=== PATIENT | female | born 1995 | race Two or more races ===

== ENCOUNTER 2020-09-25 18:46 | Emergency (ER) | payer SELFPAY ==
[2020-09-25 19:07] VITALS: BP 132/98; PULSE 82; RESP 20; TEMP 36.3; O2SAT 100
--- NOTE | 2020-09-25 20:17 | ED.URI ---
HPI - URI/Sore Throat General Chief Complaint: Upper Respiratory Infection Stated Complaint: Sore Throat Time Seen by Provider: 09/25/20 19:16 Source: patient Mode of arrival: ambulatory Limitations: no limitations History of Present Illness HPI Narrative: 25-year-old with no major medical problems here with complaints of sore throat for last 2 days complaints of cough occasionally which is nonproductive denies any fever or chills. MD elicited complaint: sore throat, rhinorrhea and nasal congestion Onset (ago): day(s) (2) Consistency: constant Severity: moderate Exacerbating factors: swallowing Relieving factors: nothing Review of Systems Review of Systems: All systems reviewed & are unremarkable except as noted in HPI and below Constitutional: Constitutional: Reports no additional constitutional complaints Eyes: Eyes: Reports no additional eye complaints ENT: Reports as per HPI Cardiovascular: Cardiovascular: Reports no additional cardiovascular complaints Respiratory: Respiratory: Reports as per HPI Gastrointestinal: Gastrointestinal: Reports no additional gastrointestinal complaints Musculoskeletal: Musculoskeletal: Reports no additional musculoskeletal complaints PMFSH Social History Social History Gender identity (if verbalized by the patient): Female Exam Narrative: Exam Narrative: GENERAL: Well-appearing, well-nourished, and in no acute distress. HEAD: Normocephalic, atraumatic. EYES: PERRLA and EOMI. ENT: Nares clear, no rhinorrhea or epistaxis. Mucous membranes moist. NECK: Supple. CHEST: Clear to auscultation. No respiratory distress. HEART: Regular rate and rhythm. No murmur heard. Normal peripheral pulse EXTREMITIES: Normal range of motion. No edema. SKIN: Warm, dry, no rash. NEURO: No focal deficits. Alert and oriented x3. PSYCH: Normal mood and affect. Course Course Emergency Course: Inform patient about her lab work. We will wait for Covid screening at this time it appears to be viral pharyngitis advised her to take Tylenol ibuprofen for fever. Vital Signs Vital signs: Vital Signs Temperature 36.3 C L 09/25/20 19:07 Pulse Rate 82 09/25/20 19:07 Respiratory Rate 20 09/25/20 19:07 Blood Pressure 132/98 H 09/25/20 19:07 Pulse Oximetry 100 09/25/20 19:07 Temperature 36.3 C L 09/25/20 19:07 Pulse Rate 82 09/25/20 19:07 Respiratory Rate 20 09/25/20 19:07 Blood Pressure 132/98 H 09/25/20 19:07 Pulse Oximetry 100 09/25/20 19:07 MDM - URI/Sore Throat Lab Data Labs: Lab Results 09/25/20 Range/Units 20:02 SARS-CoV-2 RNA (RT-PCR) Pending Strep Screen Presumptive Negative *(Reference Range: Negative)* Discharge Plan Discharge Clinical Impression: Viral infection Patient Disposition: Home, Self-Care Condition: Stable Instructions: Antibiotic Form, Viral Syndrome (ED), Face Coverings (Masks) and COVID-19 (ED) Additional Instructions: Stay quarantine till you get your Covid screen, take Tylenol ibuprofen for pain. Follow-up/Referrals: PHYSICIAN,[facility] [Primary Care Provider] - Cleopatra Brown DO [Physician] - Time of Disposition: 20:20
[2020-09-26 18:20] LABS: SARS-CoV-2 RNA PCR Negative
== END 2020-09-25 20:25 | disposition home or self-care (01) ==
PROVIDERS: Emergency Provider Family Medicine
DX: B34.9 Viral infection, unspecified (principal); Z20.822 Contact with and (suspected) exposure to COVID-19
CPT/HCPCS: 87081; 87880; 99283; C9803; U0003; U0005